=== PATIENT | female | born 1955 | race African-American/Black ===

== ENCOUNTER 2017-05-26 06:03 | Emergency (ER) | payer MEDICARE, MEDICAID ==
[~2017-05-26] VITALS: Ht 165.1 cm; Wt 116.8 kg
[~2017-05-26 06:03] MED LIST: ALPR1TAB3 PO; ASPI81TA11 PO; CLON-352 PO; CYAN1000P IM; GLUCTAB PO; HYDR-2768 PO; MIRA33502 PO; NOVO7030P2 SQ; OMEGCAP2 PO; OMEP20CA5 PO; PERC5TAB12 PO; ZOFR4TAB3 SL; [UNRECOGNIZED DRUG - CODE] PO; [UNRECOGNIZED DRUG - OTHER] PO
[2017-05-26 06:06] VITALS: BP 111/69; PULSE 97; RESP 16; TEMP 98.6; O2SAT 98
[2017-05-26] MEDS ORDERED: DEXAMETHASONE SOD PHOS 20 MG/5 ML VIAL IM ONE (06:30)
[2017-05-26] MEDS ORDERED: ONDANSETRON ODT 4 MG TAB PO ONE (06:30)
[2017-05-26] MEDS ORDERED: HYDROmorphone HCL PF 1 MG/ML VIAL IM ONE (06:30)
[2017-05-26] MEDS ORDERED: MEDR4PAK PO (06:38)
[2017-05-26] MEDS ORDERED: ROBA750T PO (06:38)
--- NOTE | 2017-05-26 06:40 | PD ---
HPI Chief Complaint: Back/ Neck Pain or Injury Time Seen by Provider: 06:29 Travel History International Travel<30 days: No Contact w/Intl Traveler<30days: No Traveled to known affect area: No History of Present Illness HPI 61-year-old female presents to the emergency department by private transportation the care of family for evaluation of exacerbation of chronic low back pain with radiation to the left lower extremity with prior history of sciatica. Patient states symptoms are typical of exacerbation flare. Patient denies any lower extremity numbness tingling or weakness. No saddle anesthesia no bladder or bowel dysfunction. Patient is undergone gastric bypass in the past and is not able to take nonsteroidal anti-inflammatory medications. Patient also has history of diabetes and has had good control of her blood sugars. Patient has history of hypertension states her pressure has been well- controlled. Patient takes Percocet every 8 hours on an as-needed basis and has been taking Percocet every 10 hours for the past 2 days with only minimal pain relief. Patient has chronic pain syndrome. Patient rates current pain 9/10 in intensity. Patient denies any other concerns or complaints specifically no fever, no chills, no respiratory illness symptoms, no chest pain, shortness of breath, no nausea, no vomiting, no abdominal pain, no change in bowel habits, no dysuria, no frequency, no urgency, no retention, no hematuria, no flank pain. Patient denies any recent injury. PFSH Past Medical History Narrative Medical Arthritis, sciatica, diabetes, hypertension, gastric bypass, lumbar spine surgery, no tobacco use, nursing notes reviewed Depression: Yes Cardiovascular Problems: Yes Diabetes: Yes Patient Takes Glucophage: Yes (METFORMIN ) Diminished Hearing: No Hypertension: Yes Medical other: Yes (CHRONIC BACK PAIN ) Immunizations Current: Yes Sleep Apnea: Yes (CPAP) Tetanus Vaccination: > 5 Years Menopausal: Yes Past Surgical History Abdominal Surgery: Yes (GASTRIC BYPASS.) Section: Yes (X3) Cholecystectomy: Yes Other Surgery: Yes (GALLSTONES REMOVED/) Social History Alcohol Use: No Tobacco Use: No Substance Use: No Allergies-Medications (Allergen,Severity, Reaction): Coded Allergies: Sulfa (Sulfonamide Antibiotics) (Unverified Allergy, Severe, SWELLING, ) aspirin (Unverified Allergy, Severe, ABD PAIN/BLEEDING, 05/07/17) gabapentin (Unverified Allergy, Severe, NERVOUS BREAKDOWN, 05/07/17) naproxen (Unverified Allergy, Severe, ABD PAIN/BLEEDING, 05/07/17) penicillin G (Unverified Allergy, Severe, SWELLING, 05/07/17) ibuprofen (Unverified Allergy, Unknown, ABD PAIN/BLEEDING, 05/07/17) Reported Meds & Prescriptions Reported Meds & Active Scripts Active Robaxin (Methocarbamol) 750 Mg Tab 750 Mg PO Q6HR Medrol Dosepak (Methylprednisolone) 4 Mg Dspk 4 Mg PO DIRECTED Per Pharmacist direction Zofran ODT (Ondansetron HCl) 4 Mg Tab 4 Mg SL Q6H PRN FOR NAUSEA/VOMITING Prilosec 20 mg (Omeprazole) 20 Mg Capcr 20 Mg PO BID Percocet 5-325 mg (Oxycodone/Acetaminophen) 5 Mg/325 Mg Tab 1 Tab PO Q6H Percocet 5-325 mg (Oxycodone/Acetaminophen) 5 Mg/325 Mg Tab 1 Tab PO Q6H PRN Reported Clonidine HCl ER (Clonidine HCl (Adhd)) 0.1 Mg Tab 0.1 Mg PO BID Vitamin B12 (Cyanocobalamin) 1,000 Mcg/Ml Inj 1,000 Mcg IM Alprazolam 1 Mg Tab 1 Mg PO DAILY Percocet 5-325 mg (Oxycodone/Acetaminophen) 5 Mg/325 Mg Tab 1-2 Tab PO Q4H PRN [Lizanidine] 1 Mg PO DAILY Eql Garlic Odorless (Garlic) 1,000 Mg Cap 1,000 Mg PO BID Miralax (Polyethylene Glycol) 255 Gm Powd 1 Capful PO DIRECTED PRN MIX 1 CAPFUL (17 GM) IN 8 OZ WATER Novolin 70/30 (Insulin Human Isoph/Insulin Regular) 100 Units/Ml Inj 30 Units SQ BID Glucophage XR 24 HR (Metformin HCl) 500 Mg Tab 500 Mg PO DAILY [place]-3 (Docosahexaenoic Acid-Eicosapen) Cap 1 PO DAILY Aspirin EC 81 mg (Aspirin) 81 Mg Tab 81 Mg PO DAILY Hctz (Hydrochlorothiazide) 25 Mg Tab 25 Mg PO DAILY Review of Systems Except as stated in HPI: all other systems reviewed are Neg General / Constitutional: No: Fever, Chills Eyes: No: Visual changes HENT: No: Headaches, Neck Stiffness, Neck Pain Cardiovascular: No: Chest Pain or Discomfort Respiratory: No: Shortness of Breath Gastrointestinal: No: Nausea, Vomiting, Abdominal Pain Genitourinary: No: Urgency, Frequency, Dysuria, Hesitancy, Incontinence, Pelvic Pain Musculoskeletal: Positive: Myalgias, Arthralgias, Limited ROM, Pain (low back pain low back pain), No: Weakness, Cramping, Edema Skin: No Rash Neurologic: No: Weakness, Focal Abnormalities, Coordination Problem, Paresthesia, Incontinence Psychiatric: No: Anxiety Hematologic/Lymphatic: No: Lymph Node Enlargement Physical Exam Narrative GENERAL: Well-developed well-nourished obese female in no acute distress no respiratory distress but intermittently grimacing because of pain with movement SKIN: Warm and dry. HEAD: Normocephalic. EYES: No scleral icterus. No injection or drainage. NECK: Supple, trachea midline. No JVD or lymphadenopathy. CARDIOVASCULAR: Regular rate and rhythm without murmurs, gallops, or rubs. RESPIRATORY: Breath sounds equal bilaterally. No accessory muscle use. GASTROINTESTINAL: Abdomen soft, non-tender, nondistended. MUSCULOSKELETAL: No cyanosis, or edema. Radial pulse 2+ to palpation dorsalis pedis pulses 2+ to palpation BACK: Nontender without obvious deformity. Negative straight leg raising. Motor strength 5 over 5. Sensory exam intact as tested. No clonus. No CVA tenderness. Data Data Last Documented VS Vital Signs Date Time Temp Pulse Resp B/P (MAP) Pulse Ox O2 Delivery O2 Flow Rate FiO2 05/26/17 06:06 98.6 97 16 111/69 (83) 98 Room Air Orders Orders Hydromorphone Pf Inj (Dilaudid Pf Inj) (05/26/17 06:30) Ondansetron Odt (Zofran Odt) (05/26/17 06:30) Dexamethasone Inj (Decadron Inj) (05/26/17 06:30) MDM Medical Decision Making Medical Screen Exam Complete: Yes Emergency Medical Condition: Yes Medical Record Reviewed: Yes Differential Diagnosis Low back pain, sciatica, sacroiliitis, piriformis syndrome, lumbar radiculopathy , HNP, cauda equina Narrative Course Patient with chronic recurrent sciatica not responding to prescription pain medication as currently prescribed presents for exacerbation of low back pain with radiation to the left lower extremity without weakness or paresthesias and no saddle anesthesia or bladder or bowel dysfunction. No findings for cord compression. Patient administered Dilaudid 1 mg IM Decadron 10 mg IM and oral dose of Zofran 4 mg Patient is stable for outpatient management and follow-up with her pain management provider. Patient will be given prescription for Robaxin and a Medrol Dosepak. Diagnosis Primary Impression: Sciatica of left side Referrals: Primary Care Physician 2 days Patient Instructions: General Instructions Additional Instructions: Increase fluid hydration Monitor blood sugars closely Use muscle relaxant as prescribed as needed use with caution with chronic pain medication as may increase risk for fall Take steroid as prescribed and tapering fashion monitor blood sugars closely while on steroid therapy as blood sugars may be increased Apply moist heat to low back area Follow-up with primary care provider Return to the emergency department for any concerns or change in condition Med/Other Pt SpecificInfo: Prescription(s) given Scripts Methocarbamol (Robaxin) 750 Mg Tab 750 MG PO Q6HR for Muscle Spasm, #10 TAB 0 Refills Prov: Aisha Phillips MD 05/26/17 Methylprednisolone Dosepak (Medrol Dosepak) 4 Mg Dspk 4 MG PO DIRECTED, #1 DSPK 0 Refills Per Pharmacist direction Prov: Aisha Phillips MD 05/26/17 Aisha Phillips MD May 26, 2017 06:40
[2017-05-26 07:03] VITALS: RESP 16
== END 2017-05-26 07:45 | disposition home or self-care (01) ==
LOC: NEPC 06:03
DX: M54.42 Lumbago with sciatica, left side (principal); E11.9 Type 2 diabetes mellitus without complications; I10 Essential (primary) hypertension; Z79.4 Long term (current) use of insulin
CPT/HCPCS: 96372; 99284; J1100; J1170

== ENCOUNTER 2017-07-07 06:00 | Emergency (ER) | payer MEDICARE, MEDICAID ==
[~2017-07-07] VITALS: Ht 165.1 cm; Wt 115.0 kg
[~2017-07-07 06:00] MED LIST changes: +MEDR4PAK PO; +ROBA750T PO
[2017-07-07 06:02] VITALS: BP 137/88; PULSE 113; RESP 20; TEMP 98.8; O2SAT 96
--- NOTE | 2017-07-07 07:13 | PD ---
HPI Chief Complaint: Back/ Neck Pain or Injury Time Seen by Provider: 07:03 Travel History International Travel<30 days: No Contact w/Intl Traveler<30days: No Traveled to known affect area: No History of Present Illness HPI 61 year old female with history of sciatica presents to the ED for evaluation of exacerbation of her sciatica pain. This has been for the last 3 days. It is right sided and radiates into her buttock. Denies any injury. States the pain is constant 6/10, but acutely worsens to a 10/10 that "nearly takes her out." Denies IVDA. States symptoms are similar to previous sciatica exacerbations. She denies saddle paresthesia, loss of bowel or bladder, or lower extremity weakness. Pt denies urinary symptoms. No recent illness fever or chills. No other symptoms tor report. PFSH Past Medical History Depression: Yes Cardiovascular Problems: Yes Diabetes: Yes Diminished Hearing: No Hypertension: Yes Immunizations Current: Yes Sleep Apnea: Yes (CPAP) Menopausal: Yes Past Surgical History Abdominal Surgery: Yes (GASTRIC BYPASS.) Section: Yes (X3) Cholecystectomy: Yes Other Surgery: Yes (GALLSTONES REMOVED/) Social History Alcohol Use: No Tobacco Use: No Substance Use: No Allergies-Medications (Allergen,Severity, Reaction): Coded Allergies: Sulfa (Sulfonamide Antibiotics) (Unverified Allergy, Severe, SWELLING, ) aspirin (Unverified Allergy, Severe, ABD PAIN/BLEEDING, 07/07/17) gabapentin (Unverified Allergy, Severe, NERVOUS BREAKDOWN, 07/07/17) naproxen (Unverified Allergy, Severe, ABD PAIN/BLEEDING, 07/07/17) penicillin G (Unverified Allergy, Severe, SWELLING, 07/07/17) ibuprofen (Unverified Allergy, Unknown, ABD PAIN/BLEEDING, 07/07/17) Reported Meds & Prescriptions Reported Meds & Active Scripts Active Robaxin (Methocarbamol) 750 Mg Tab 750 Mg PO Q6HR Medrol Dosepak (Methylprednisolone) 4 Mg Dspk 4 Mg PO DIRECTED Per Pharmacist direction Zofran ODT (Ondansetron HCl) 4 Mg Tab 4 Mg SL Q6H PRN FOR NAUSEA/VOMITING Prilosec 20 mg (Omeprazole) 20 Mg Capcr 20 Mg PO BID Percocet 5-325 mg (Oxycodone/Acetaminophen) 5 Mg/325 Mg Tab 1 Tab PO Q6H Percocet 5-325 mg (Oxycodone/Acetaminophen) 5 Mg/325 Mg Tab 1 Tab PO Q6H PRN Reported Clonidine HCl ER (Clonidine HCl (Adhd)) 0.1 Mg Tab 0.1 Mg PO BID Vitamin B12 (Cyanocobalamin) 1,000 Mcg/Ml Inj 1,000 Mcg IM Alprazolam 1 Mg Tab 1 Mg PO DAILY Percocet 5-325 mg (Oxycodone/Acetaminophen) 5 Mg/325 Mg Tab 1-2 Tab PO Q4H PRN [Lizanidine] 1 Mg PO DAILY Eql Garlic Odorless (Garlic) 1,000 Mg Cap 1,000 Mg PO BID Miralax (Polyethylene Glycol) 255 Gm Powd 1 Capful PO DIRECTED PRN MIX 1 CAPFUL (17 GM) IN 8 OZ WATER Novolin 70/30 (Insulin Human Isoph/Insulin Regular) 100 Units/Ml Inj 30 Units SQ BID Glucophage XR 24 HR (Metformin HCl) 500 Mg Tab 500 Mg PO DAILY [place]-3 (Docosahexaenoic Acid-Eicosapen) Cap 1 PO DAILY Aspirin EC 81 mg (Aspirin) 81 Mg Tab 81 Mg PO DAILY Hctz (Hydrochlorothiazide) 25 Mg Tab 25 Mg PO DAILY Review of Systems Except as stated in HPI: all other systems reviewed are Neg Physical Exam Narrative GENERAL: Well nourished female pt in no acute distress SKIN: Warm and dry. HEAD: Normocephalic. EYES: No scleral icterus. No injection or drainage. NECK: Supple, trachea midline. No JVD or lymphadenopathy. CARDIOVASCULAR: Regular rate and rhythm without murmurs, gallops, or rubs. RESPIRATORY: Breath sounds equal bilaterally. No accessory muscle use. GASTROINTESTINAL: Abdomen soft, non-tender, nondistended. MUSCULOSKELETAL: No cyanosis, or edema. 5+ strength equal bilateral lower extremities. + Straight leg RLL BACK: No spinal tenderness without obvious deformity. No CVA tenderness. Tenderness elicited to palpation over the right sacroiliac joint. Data Data Last Documented VS Vital Signs Date Time Temp Pulse Resp B/P (MAP) Pulse Ox O2 Delivery O2 Flow Rate FiO2 07/07/17 08:14 07/07/17 06:02 98.8 113 20 96 Room Air Orders Orders Ketorolac Inj (Toradol Inj) (07/07/17 07:15) Orphenadrine Inj (Norflex Inj) (07/07/17 07:15) Ed Discharge Order (07/07/17 07:33) [facility] Medical Decision Making Medical Screen Exam Complete: Yes Emergency Medical Condition: Yes Medical Record Reviewed: Yes Differential Diagnosis sciatica vs low back strain vs discogenic pain vs radiculopathy Narrative Course 61 year old female presents to the eD for evaluation of exacerbation of her sciatica pain with no preceding injury. PT appears well. She has no focal deficits or weakness. She will be treated for pain. Upon reassessment, pain has not resolved, but has decreased. Pt will be discharged home at this time to follow up with a primary care provider. She agrees to return immediately with acute worsening of symptoms Diagnosis Primary Impression: Low back pain Qualified Codes: M54.41 - Lumbago with sciatica, right side; G89.29 - Other chronic pain Referrals: Primary Care Physician Patient Instructions: Back Pain (GEN), General Instructions Additional Instructions: Ice and/or warm moist heat may help to alleviate symptoms Follow-up with primary care provider Continue pain medication as already prescribed Return immediately to the emergency department with any acute worsening of symptoms Med/Other Pt SpecificInfo: No Change to Meds Disposition: 01 DISCHARGE HOME Condition: Stable Caitlyn Harrington Jul 07, 2017 07:13
[2017-07-07] MEDS ORDERED: ORPHENADRINE INJ 60 MG/2 ML AMP IM ONE (07:15)
[2017-07-07] MEDS ORDERED: KETOROLAC TROMETHAMINE 60 MG/2 ML (IM) VIAL IM ONE (07:15)
== END 2017-07-07 08:16 | disposition home or self-care (01) ==
LOC: NEPD 06:00
DX: M54.41 Lumbago with sciatica, right side (principal)
CPT/HCPCS: 96372; 99284; J1885; J2360